=== PATIENT | female | born 1990 | race Caucasian/White ===

== ENCOUNTER → 2020-05-14 | Outpatient (CLI) | payer OTHER ==
--- NOTE | 2020-05-14 17:50 | Diagnostic Imaging Report ---
EXAM: Right breast ultrasound, limited. INDICATION: Right breast mass By history the patient has a palpable abnormality in the 9 o'clock position of the right breast. The diagnostic mammogram performed prior to this study failed to show any sign of malignancy in this region. On this exam there is no discrete solid or cystic mass identified. It may be that the palpable abnormality in question is related to fibronodular tissue alone. However if clinical concern regarding an underlying abnormality persists, then biopsy should still be considered. IMPRESSION: 1. There is no discrete solid or cystic mass in the area of the patient's palpable abnormality in the right breast. Clinical follow-up is recommended. ACR category 1 ACR BI-RADS Category 1: Negative. Result letter will be mailed to the patient. Note: At least 10% of breast cancer is not imaged by mammography. Dictated by: Dictated on workstation # [id number]
--- NOTE | 2020-05-14 19:38 | Diagnostic Imaging Report ---
INDICATION: Right breast lump. EXAMINATION: Unilateral diagnostic right mammogram with CAD. 3D tomographic images were obtained and reviewed. CC, ML and MLO views of the right breast were obtained. CC and MLO views of the left breast were also performed. The current study was also evaluated with a Computer Aided Detection (CAD) system. COMPARISON: None. This is the patient's baseline study. FINDINGS: At this time the patient does complain of a lump in the 9 o'clock position of the right breast. A edith was placed over the area of concern. There is no primary or secondary sign of malignancy noted. However, the fibroglandular tissue in the right breast is extremely dense and could mask a lesion. I would recommend that ultrasound be performed for further study. There is no evidence for malignancy involving the left breast. There is a loop recorder device in place overlying the left pectoralis muscle. IMPRESSION: There is no abnormality to correspond to the patient's palpable mass in the right breast. Ultrasound would be recommended for further study however. ACR BI-RADS Category 0: Incomplete. (Needs additional imaging evaluation). Result letter will be mailed to the patient. Note: At least 10% of breast cancer is not imaged by mammography. Dictated by: Dictated on workstation # [id number]
== END ==
LOC: RAD 13:45
PROVIDERS: ATTEND Obstetrics & Gynecology
DX: N63.10 Unspecified lump in the right breast, unspecified quadrant (principal)
CPT/HCPCS: 76642; 77065; G0279

== ENCOUNTER → 2022-03-23 | Outpatient (CLI) | payer OTHER ==
--- NOTE | 2022-03-23 15:00 | Diagnostic Imaging Report ---
EXAMINATION: Lumbar spine MRI without contrast from 03/23/2022. TECHNIQUE: Multiplanar, multisequence MRI of the lumbar spine was performed without contrast. INDICATION: Low back pain and right hip pain. FINDINGS: There is normal height and alignment of the vertebral bodies. Tip of the conus is unremarkable in appearance and location. L1-L2: Unremarkable. L2-L3: Unremarkable. L3-L4: There is minimal bilateral facet hypertrophy. No significant bulging disc material. There is no central stenosis. There is mild bilateral neural foraminal narrowing. L4-L5: There is bilateral facet and ligamentum flavum hypertrophy with minimal broad-based bulging disc material. There is no central stenosis. There is mild bilateral neural foraminal narrowing. There are cystic changes abutting the right facet posteriorly, most consistent with synovial cyst. L5-S1: Unremarkable. Visualized intra-abdominal structures are unremarkable. IMPRESSION: 1. Mild degenerative findings in the lower lumbar spine, predominantly involving L3-L4 and L4-L5. No significant central or neural foraminal stenosis. Dictated by: Dictated on workstation # [id number]
== END ==
LOC: RAD 12:52
PROVIDERS: ATTEND Family Medicine Sports Medicine
DX: M47.816 Spondylosis without myelopathy or radiculopathy, lumbar region (principal)
CPT/HCPCS: 72148